=== PATIENT | male | born 1995 | race Caucasian/White ===

== ENCOUNTER 2017-01-16 10:25 | Emergency (ER) | payer OTHER ==
[~2017-01-16] VITALS: Ht 185.4 cm; Wt 137.3 kg
[~2017-01-16 10:25] MED LIST: RANI15SY2 PO
[2017-01-16] MEDS ORDERED: CARBAMIDE PEROXIDE 6.5% 15 ML OTIC SOLUTION AS ONE (11:45)
[2017-01-16] MEDS ORDERED: AMOXICILLIN TRIHYDRATE 250 MG CAPSULE PO ONE (12:45)
[2017-01-16 13:03] VITALS: BP 123/63
== END 2017-01-16 13:07 | disposition home or self-care (01) ==
LOC: EMS 10:25
DX: H72.92 Unspecified perforation of tympanic membrane, left ear (principal); K21.9 Gastro-esophageal reflux disease without esophagitis
CPT/HCPCS: 99283

== ENCOUNTER 2017-02-13 10:26 | Emergency (ER) | payer OTHER ==
[~2017-02-13] VITALS: Ht 185.4 cm; Wt 136.0 kg
[2017-02-13 13:00] LABS: ADD UA MICROSCOPIC NO; APPEARANCE,URINE CLEAR (CLEAR); GLUCOSE, URINE (UA) NEGATIVE (NEGATIVE); KETONES,URINE NEGATIVE (NEGATIVE); LEUKOCYTE ESTERASE ,URINE NEGATIVE (NEGATIVE); OCCULT BLOOD,URINE NEGATIVE (NEGATIVE); PROTEIN,URINE NEGATIVE (NEGATIVE)
[2017-02-13] MEDS ORDERED: HYDROCODONE/ACETAMINOPHEN 10-325 MG TABLET PO ONE (13:00)
[2017-02-13 13:52] LABS: CREATINE KINASE MB < 0.5 ng/mL (0-5); CREATINE KINASE, TOTAL 78 U/L (39-308)
[2017-02-13 14:11] LABS: BASOPHILS # (AUTO) 0.03 K/uL (0.00-0.20); BASOPHILS % (AUTO) 0.5 % (0.0-2.0); EOSINOPHILS # (AUTO) 0.05 K/uL (0.00-0.70); EOSINOPHILS % (AUTO) 0.78 % (1.0-6.0); HEMATOCRIT 45.1 % (41-53); HEMOGLOBIN 15.3 g/dL (13.5-17.5); LYMPHOCYTES # (AUTO) 1.2 K/uL (1.0-4.8); LYMPHOCYTES % (AUTO) 19.3 % (22.0-44.0); MEAN CORPUSCULAR HGB CONC 33.9 G/dL (31.0-37.0); MEAN CORPUSCULAR VOLUME 86 fL (80-100); MONOCYTES # (AUTO) 0.4 K/uL (0.1-1.0); MONOCYTES % (AUTO) 6.8 % (2.0-9.0); NEUTROPHILS # (AUTO) 4.5 K/uL (1.8-7.7); NEUTROPHILS % (AUTO) 72.7 % (40.0-70.0); PLATELET COUNT (AUTO) 195 K/uL (150-450); RED BLOOD CELL COUNT(AUTO) 5.28 MIL/uL (4.50-5.90); RED CELL DISTRIBUTION WIDTH 12.6 % (11.5-14.5); WHITE BLOOD COUNT (AUTO) 6.2 K/uL (4.5-11.0)
[2017-02-13 14:56] VITALS: BP 124/62
[2017-02-13] MEDS ORDERED: CefTRIAXone SODIUM 1 GM/VIAL IM ONE (15:00)
[2017-02-13] MEDS ORDERED: AZITHROMYCIN 250 MG TABLET PO ONE (15:00)
[2017-02-13] MEDS ORDERED: LIDOCAINE HCL/PF 1% 2 ML VIAL IM ONE (15:00)
== END 2017-02-13 15:31 | disposition home or self-care (01) ==
LOC: EMS 10:27
DX: N45.1 Epididymitis (principal); N45.2 Orchitis; R07.89 Other chest pain; K21.9 Gastro-esophageal reflux disease without esophagitis
CPT/HCPCS: 36415; 76870; 81003; 82550; 82553; 84484; 85025; 93005; 96372; 99285; J0696; J3490

== ENCOUNTER 2017-05-30 01:57 | Emergency (ER) | payer OTHER ==
[~2017-05-30] VITALS: Ht 185.4 cm; Wt 137.7 kg
[2017-05-30] MEDS ORDERED: ACETAMINOPHEN 500 MG TABLET PO ONE (03:15)
[2017-05-30 04:30] VITALS: BP 120/75
== END 2017-05-30 04:54 | disposition home or self-care (01) ==
LOC: EMS 01:58
DX: S92.354A Nondisplaced fracture of fifth metatarsal bone, right foot, initial encounter for closed fracture (principal); K21.9 Gastro-esophageal reflux disease without esophagitis; X58.XXXA Exposure to other specified factors, initial encounter; Y93.39 Activity, other involving climbing, rappelling and jumping off; Y92.89 Other specified places as the place of occurrence of the external cause; Y99.8 Other external cause status
CPT/HCPCS: 99284

== ENCOUNTER 2018-04-03 15:54 | Emergency (ER) | payer OTHER ==
[~2018-04-03] VITALS: Ht 185.4 cm; Wt 131.8 kg
[2018-04-03 18:12] VITALS: BP 119/47
== END 2018-04-03 18:29 | disposition home or self-care (01) ==
LOC: EMS 15:55
DX: H49.22 Sixth [abducent] nerve palsy, left eye (principal); K21.9 Gastro-esophageal reflux disease without esophagitis
CPT/HCPCS: 70450; 99284

== ENCOUNTER 2018-04-10 09:52 | Emergency (ER) | payer OTHER ==
[~2018-04-10] VITALS: Ht 185.4 cm; Wt 131.4 kg
[2018-04-10] MEDS ORDERED: UNK ABX PO (09:58)
[2018-04-10] MEDS ORDERED: MINERAL OIL/PETROLATUM,WHITE PF 3.5 GM OPHTHALMIC OINTMENT OS ONE (11:45)
[2018-04-10] MEDS ORDERED: PredniSONE 20 MG TABLET PO ONE (11:45)
[2018-04-10] MEDS ORDERED: ValACYclovir HCL 500 MG TABLET PO ONE (11:45)
[2018-04-10 12:48] VITALS: BP 127/68
== END 2018-04-10 12:50 | disposition home or self-care (01) ==
LOC: EMS 09:54
DX: G51.0 Bell's palsy (principal); K21.9 Gastro-esophageal reflux disease without esophagitis; K76.0 Fatty (change of) liver, not elsewhere classified
CPT/HCPCS: 99284; J7512

== ENCOUNTER 2019-03-22 20:30 | Emergency (ER) | payer OTHER ==
[~2019-03-22] VITALS: Ht 190.5 cm; Wt 131.8 kg
[~2019-03-22 20:30] MED LIST changes: -RANI15SY2 PO; +UNK ABX PO
[2019-03-22] MEDS ORDERED: PAIN MEDICATION PO (20:40)
[2019-03-23 00:30] VITALS: BP 128/89
== END 2019-03-23 00:35 | disposition home or self-care (01) ==
LOC: EMS 20:31
DX: N45.1 Epididymitis (principal)
CPT/HCPCS: 76870

== ENCOUNTER 2019-04-21 18:46 | Emergency (ER) | payer OTHER ==
[~2019-04-21] VITALS: Ht 188 cm; Wt 131.4 kg
[~2019-04-21 18:46] MED LIST changes: +PAIN MEDICATION PO; -UNK ABX PO
[2019-04-21 19:19] LABS: APPEARANCE,URINE CLEAR (CLEAR); BILIRUBIN,URINE NEGATIVE (NEGATIVE); GLUCOSE, URINE (UA) NEGATIVE (NEGATIVE); KETONES,URINE NEGATIVE (NEGATIVE); LEUKOCYTE ESTERASE ,URINE NEGATIVE (NEGATIVE); NITRATE,URINE NEGATIVE (NEGATIVE); OCCULT BLOOD,URINE NEGATIVE (NEGATIVE); PROTEIN,URINE NEGATIVE (NEGATIVE); UROBILINOGEN,URINE 0.2 mg/dL (<=1.0)
[2019-04-21 21:45] VITALS: BP 130/78
== END 2019-04-21 21:47 | disposition home or self-care (01) ==
LOC: EMS 18:48
DX: S30.22XA Contusion of scrotum and testes, initial encounter (principal); K21.9 Gastro-esophageal reflux disease without esophagitis; W21.09XA Struck by other hit or thrown ball, initial encounter; Y93.89 Activity, other specified; Y92.89 Other specified places as the place of occurrence of the external cause; Y99.8 Other external cause status
CPT/HCPCS: 76870

== ENCOUNTER 2020-01-07 19:44 | Emergency (ER) | payer SELFPAY ==
[~2020-01-07] VITALS: Ht 188 cm; Wt 135.9 kg
[2020-01-07 20:41] LABS: BASOPHILS % (AUTO) 0.8 % (0.0-2.0); EOSINOPHILS % (AUTO) 4.9 % (1.0-6.0); HEMATOCRIT 40.1 % (41-53); HEMOGLOBIN 13.9 g/dL (13.5-17.5); LYMPHOCYTES # (AUTO) 0.6 K/uL (1.0-4.8); LYMPHOCYTES % (AUTO) 14.6 % (22.0-44.0); MEAN CORPUSCULAR HEMOGLOBIN 29.6 pg (26.0-34.0); MEAN CORPUSCULAR HGB CONC 34.7 G/dL (31.0-37.0); MEAN CORPUSCULAR VOLUME 85 fL (80-100); MONOCYTES # (AUTO) 0.8 K/uL (0.1-1.0); NEUTROPHILS # (AUTO) 2.4 K/uL (1.8-7.7); NEUTROPHILS % (AUTO) 60.7 % (40.0-70.0); PLATELET COUNT (AUTO) 163 K/uL (150-450); RED CELL DISTRIBUTION WIDTH 12.7 % (11.5-14.5)
[2020-01-07 20:51] LABS: PROTHROMBIN TIME 10.3 SEC (9.4-11.6)
[2020-01-07 20:55] LABS: ANION GAP 9 mmol/L (8-16); CALCIUM, TOTAL 8.3 mg/dL (8.8-10.5); CARBON DIOXIDE 27 mmol/L (22-29); CHLORIDE 102 mmol/L (98-107); CREATININE 0.66 mg/dL (0.60-1.30); GLOMERULAR FILTR. RATE CALC > 60 mL/min (>60); GLUCOSE,RANDOM 84 mg/dL (70-110); POTASSIUM 3.4 mmol/L (3.5-5.1); SODIUM SERUM 138 mmol/L (136-145); UREA NITROGEN, BLOOD 14 mg/dL (7-18)
[2020-01-07 20:56] LABS: AMPHET/METH SCREEN,URINE NEGATIVE (NEGATIVE); BARBITURATE SCREEN, URINE NEGATIVE (NEGATIVE); BENZODIAZEPINES SCREEN,URINE NEGATIVE (NEGATIVE); CANNABINOID SCREEN,URINE NEGATIVE (NEGATIVE); COCAINE SCREEN,URINE NEGATIVE (NEGATIVE); METHADONE SCREEN, URINE NEGATIVE (NEGATIVE); OPIATE SCREEN,URINE NEGATIVE (NEGATIVE)
[2020-01-07 20:58] LABS: PHENCYCLIDINE SCREEN,URINE NEGATIVE (NEGATIVE)
[2020-01-07 21:08] LABS: ALANINE AMINOTRANSFERASE 33 U/L (12-78); ALKALINE PHOSPHATASE 72 U/L (46-116); ASPARTATE AMINOTRANSFERASE 20 U/L (15-37); BILIRUBIN,TOTAL 0.4 mg/dL (0.1-1.0); TOTAL PROTEIN, SERUM 7.3 g/dL (6.4-8.2)
[2020-01-07 22:18] VITALS: BP 151/72
== END 2020-01-07 22:39 | disposition home or self-care (01) ==
LOC: EMS 19:49
DX: R51 Headache (principal); F41.9 Anxiety disorder, unspecified; R07.89 Other chest pain; K21.9 Gastro-esophageal reflux disease without esophagitis
CPT/HCPCS: 70450; 93005

== ENCOUNTER 2020-05-28 10:39 | Emergency (ER) | payer SELFPAY ==
[~2020-05-28] VITALS: Ht 185.4 cm; Wt 135.4 kg
[2020-05-28 12:55] LABS: APPEARANCE,URINE CLEAR (CLEAR); BILIRUBIN,URINE NEGATIVE (NEGATIVE); GLUCOSE, URINE (UA) NEGATIVE (NEGATIVE); KETONES,URINE NEGATIVE (NEGATIVE); LEUKOCYTE ESTERASE ,URINE NEGATIVE (NEGATIVE); NITRATE,URINE NEGATIVE (NEGATIVE); OCCULT BLOOD,URINE NEGATIVE (NEGATIVE); PROTEIN,URINE NEGATIVE (NEGATIVE); UROBILINOGEN,URINE 0.2 mg/dL (<=1.0)
[2020-05-28 13:00] LABS: BACTERIA,URINE None Seen /HPF (None Seen); RBC,URINE None Seen /HPF (0-2); WBC,URINE None Seen /HPF (0-5)
[2020-05-28 13:15] VITALS: BP 113/76
== END 2020-05-28 13:11 | disposition home or self-care (01) ==
LOC: EMS 10:40
DX: N45.1 Epididymitis (principal); R03.0 Elevated blood-pressure reading, without diagnosis of hypertension; K21.9 Gastro-esophageal reflux disease without esophagitis
CPT/HCPCS: 76870; 81001-TC; Z7502